=== PATIENT | female | born 1935 | race Caucasian/White ===

== ENCOUNTER → 2018-01-06 14:32 | Outpatient (CLI) | payer MEDICARE, SELFPAY ==
[2018-01-06 15:54] LABS: Alanine Aminotransferase 41 IU/L (9-52); Albumin 4.5 g/dL (3.5-5.0); Albumin Globulin Ratio 1.7 (1.0-2.8); Alkaline Phosphatase 66 U/L (38-126); Aspartate Aminotransferase 43 IU/L (14-36); BUN Creatinine Ratio 21.1 (6-22); Bilirubin Total 0.7 mg/dL (0.2-1.3); Blood Urea Nitrogen 19 mg/dL (7-17); Carbon Dioxide 30 mmol/L (22-32); Chloride 100 mmol/L (98-107); Estimated Glomerular Filt Rate > 60.0 mL/min (>60); Globulin 2.6 g/dL (1.7-4.1); Glucose 127 mg/dL (80-110); HEMOLYSIS < 15 (0-50); Potassium 4.5 mmol/L (3.4-5.1); Sodium 142 mmol/L (137-145); Total Protein 7.1 g/dL (6.3-8.2)
== END ==
PROVIDERS: PCP Internal Medicine Geriatric Medicine; Visit Provider Internal Medicine Geriatric Medicine
DX: I10 Essential (primary) hypertension (principal)
CPT/HCPCS: 36415; 80053

== ENCOUNTER → 2018-01-07 09:53 | Outpatient (CLI) | payer MEDICARE, SELFPAY ==
--- NOTE | 2018-01-07 | DI.RAD.S_ITS ---
PROCEDURE: FL BARIUM SWALLOW INDICATIONS: DYSPHAGIA HYPERTENSION COMPARISON: [facility], CR, XR BARIUM SWALLOW ESOPHAGUS, 11/09/2016, 15:25. FINDINGS: Function: There is abnormal esophageal peristalsis with failure of primary peristalsis in the prone oblique position, incomplete secondary peristalsis and tertiary contractions. No elicited gastroesophageal reflux. There is normal transit of a calibrated barium tablet through the esophagus into the stomach. Morphology: Air-contrast images demonstrate normal mucosal morphology. There is evidence of previous failed fundoplasty with recurrent hiatal hernia. Single contrast views show no esophageal strictures, extrinsic mass effects, or diverticula. Limited images of the stomach demonstrate normal appearance. IMPRESSION: 1. Esophageal dysmotility 2. Recurrent hiatal hernia at post failed fundoplasty, appearing unchanged from last exam. No reflux demonstrated on current study. Dictated by: Vernon Canchola M.D. on 01/07/2018 at 10:53 Approved by: Vernon Canchola M.D. on 01/07/2018 at 10:57
--- NOTE | 2018-01-07 | DI.MRI.S_ITS ---
PROCEDURE: MR STROKE Pre- and post-contrast brain MRI, non-contrast brain MR angiogram, pre- and postcontrast neck MR angiogram INDICATIONS: DYSPHAGIA, HYPERTENSION, HEADACHE TECHNIQUE: Brain: Noncontrast axial T1 spin echo, axial T2 fast spin echo, sagittal and axial FLAIR, coronal T2 fast spin echo, axial gradient echo, axial diffusion and ADC through the brain. After the administration of contrast, axial 3D VIBE of the cranial vasculature and brain. Brain MRA: Non-contrast 3-D time of flight MR angiogram, with multiple wtlwqgg-qcswsnace-ftpdimkdip (MIP) reformats performed. Neck MRA: Axial and sagittal TruFISP through the neck. Coronal dynamic MR angiogram during administration of contrast in the arterial and venous phases, with 3-dimenstional lqwsfqg-nmtetgapl-ecfadnjags (MIP) reformats constructed from subtraction images. COMPARISON: [facility], CT, HEAD WITHOUT CONTRAST, 12/23/2016, 5:10. [facility], MR, STROKE PROTOCOL, 08/10/2016, 11:12. FINDINGS: Image quality: Excellent. BRAIN: CSF spaces: Ventricles are normal in size and shape. Basal cisterns are patent. No extra-axial fluid collections. Brain: No intracranial bleeds or mass effects. There is mild diffuse cerebral volume loss. There is a mild degree of patchy high FLAIR signal within the periventricular and subcortical white matter. Gomes-white matter interface is normal. Diffusion weighted images show no acute ischemic insults. Brainstem appears normal. Normal intravascular flow voids are present. No abnormal intracranial enhancement. Skull and face: Calvarial marrow signal is normal. Orbits appear normal. Sinuses: Sinuses and mastoids are clear. BRAIN MR ANGIOGRAM: Anterior circulation: Intracranial internal carotid arteries are normal in size and enhancement. The flow within the paired anterior cerebral arteries is normal and symmetric. The flow within the middle cerebral arteries is normal and symmetric. The anterior communicating artery is seen. No stenoses, occlusions, or aneurysms. Posterior circulation: The visualized portions of the vertebral arteries demonstrate normal caliber, and join to form a normal appearing basilar artery. The flow within the posterior cerebral arteries is normal and symmetric. No stenoses, occlusions, or aneurysms. NECK MR ANGIOGRAM: Carotids: Great vessels demonstrate a conventional anatomy as they arise from the aortic arch. The origins of the common carotid arteries appear patent. The calibers and courses of both common carotid arteries are normal. The bifurcation regions appear normal bilaterally. The internal carotid arteries demonstrate normal course and caliber. Posterior circulation: The origins of the vertebral arteries appear patent. More superior portions of both vertebral arteries demonstrate normal course and caliber, and join to form a normal appearing basilar artery. Miscellaneous: Subclavian arteries appear patent. Pre-contrast images through the neck show no soft tissue abnormalities. IMPRESSION: BRAIN MRI: 1. Negative evaluation of the brain. No recent infarct. 2. Mild volume loss and small vessel ischemic disease. BRAIN MR ANGIOGRAM: Negative cerebral MR angiography. NECK MR ANGIOGRAM: 1. No internal carotid artery stenosis bilaterally. 2. Patent bilateral vertebral arteries. Dictated by: Hilda Fernando M.D. on 01/07/2018 at 14:01 Approved by: Hilda Fernando M.D. on 01/07/2018 at 14:08
== END ==
PROVIDERS: Family Provider Internal Medicine Geriatric Medicine; PCP Internal Medicine Geriatric Medicine; Visit Provider Internal Medicine Geriatric Medicine
DX: K22.4 Dyskinesia of esophagus (principal); K44.9 Diaphragmatic hernia without obstruction or gangrene; I10 Essential (primary) hypertension; R51 Headache
CPT/HCPCS: 70553; 74220; A9579

== ENCOUNTER 2018-02-16 08:30 | Outpatient (RCR) | payer MEDICARE, SELFPAY | END 2018-02-17 11:07 | LOC: SP 08:30 | PROVIDERS: Family Provider Internal Medicine Geriatric Medicine; PCP Internal Medicine Geriatric Medicine; Visit Provider Internal Medicine Geriatric Medicine | DX: K22.4 Dyskinesia of esophagus (principal); R13.14 Dysphagia, pharyngoesophageal phase | CPT/HCPCS: 92526; 92610 ==

== ENCOUNTER → 2018-02-25 14:32 | Outpatient (CLI) | payer MEDICARE, SELFPAY ==
[2018-02-27 19:36] LABS: ANA Screen, IFA Negative (Negative)
== END ==
PROVIDERS: Family Provider Internal Medicine Geriatric Medicine; PCP Internal Medicine Geriatric Medicine; Visit Provider Internal Medicine Geriatric Medicine
DX: I73.00 Raynaud's syndrome without gangrene (principal)
CPT/HCPCS: 36415; 86038

== ENCOUNTER → 2018-05-11 14:38 | Outpatient (CLI) | payer MEDICARE, SELFPAY ==
[2018-05-11 14:54] LABS: Bacteria Urine None Seen; RBC Urine None Seen (0-5/HPF); WBC Urine None Seen (0-5/HPF)
[2018-05-11 15:04] LABS: Appearance Urine UA CLEAR; Bilirubin Urine UA NEGATIVE (NEGATIVE); Color Urine UA YELLOW; Glucose Urine UA NEGATIVE (Normal); Ketones Urine UA NEGATIVE (NEGATIVE); Leukocyte Esterase Urine UA NEGATIVE (NEGATIVE); Nitrite Urine UA NEGATIVE (Negative); Occult Blood Urine UA TRACE-LYSED (Negative); Protein Urine UA NEGATIVE (Negative); Urobilinogen Urine UA 0.2 E.U./dL (0.2)
[2018-05-11 16:01] LABS: Culture Indicated Urine Cult Not Indicated; Urine Comments Microscopic Normal
[2018-05-11 17:13] LABS: BUN Creatinine Ratio 22.2 (6-22); Blood Urea Nitrogen 20 mg/dL (7-17); Calcium 9.9 mg/dL (8.4-10.2); Carbon Dioxide 30 mmol/L (22-32); Chloride 103 mmol/L (98-107); Estimated Glomerular Filt Rate > 60.0 mL/min (>60); Glucose 83 mg/dL (80-110); HEMOLYSIS < 15 (0-50); Potassium 4.6 mmol/L (3.4-5.1); Sodium 144 mmol/L (137-145)
== END ==
PROVIDERS: PCP Internal Medicine Geriatric Medicine; Visit Provider Internal Medicine Geriatric Medicine
DX: R32 Unspecified urinary incontinence (principal); R19.5 Other fecal abnormalities
CPT/HCPCS: 36415; 80048; 81001

== ENCOUNTER → 2018-06-06 13:03 | Outpatient (CLI) | payer MEDICARE, SELFPAY ==
[2018-06-06 18:40] LABS: Blood Urea Nitrogen 18 mg/dL (7-17); Calcium 9.7 mg/dL (8.4-10.2); Carbon Dioxide 27 mmol/L (22-32); Chloride 105 mmol/L (98-107); Estimated Glomerular Filt Rate > 60.0 mL/min (>60); Glucose 101 mg/dL (80-110); HEMOLYSIS < 15 (0-50); Potassium 4.4 mmol/L (3.4-5.1); Sodium 145 mmol/L (137-145)
[2018-06-06 19:15] LABS: Cancer Antigen 125 12 U/mL (0-35)
[2018-06-06 19:33] LABS: Vitamin B12 902 pg/mL (239-931)
== END ==
PROVIDERS: Family Provider Internal Medicine Geriatric Medicine; PCP Internal Medicine Geriatric Medicine; Visit Provider Psychiatry & Neurology Neurology
DX: N83.9 Noninflammatory disorder of ovary, fallopian tube and broad ligament, unspecified (principal); D39.9 Neoplasm of uncertain behavior of female genital organ, unspecified; N83.209 Unspecified ovarian cyst, unspecified side; R63.4 Abnormal weight loss; G31.84 Mild cognitive impairment of uncertain or unknown etiology; R19.5 Other fecal abnormalities
CPT/HCPCS: 36415; 80048; 82607; 86304

== ENCOUNTER → 2018-06-20 08:16 | Outpatient (CLI) | payer MEDICARE, SELFPAY ==
[2018-06-20 10:21] LABS: Carcinoembryonic Antigen 1.9 ng/mL (0.1-3.0)
[2018-06-21 16:02] LABS: Cancer (Carbohydrate) Ag 19-9 41 U/mL (< 34)
== END ==
PROVIDERS: Family Provider Internal Medicine Geriatric Medicine; PCP Internal Medicine Geriatric Medicine; Visit Provider Obstetrics & Gynecology
DX: R19.00 Intra-abdominal and pelvic swelling, mass and lump, unspecified site (principal)
CPT/HCPCS: 36415; 82378; 86301

== ENCOUNTER 2018-06-22 10:38 | Emergency (ER) | payer MEDICARE, SELFPAY ==
[2018-06-22 10:49] VITALS: BP 135/52; PULSE 56; RESP 16; TEMP 36.4; O2SAT 97
--- NOTE | 2018-06-22 10:56 | ED.FALL ---
HPI - Fall General Chief Complaint: Fall Stated Complaint: nausea,fell Time Seen by Provider: 06/22/18 10:47 Source: patient Mode of arrival: ambulatory Limitations: no limitations History of Present Illness HPI Narrative: Patient is an 83-year-old female who presents after ground level fall. She says she has a condition where she has to get up slowly or she falls. She has to take a pause before she starts moving. She started moving felt unsteady she stopped started moving again and then fell onto the left side of her head. No loss of consciousness she does have some minor neck pain no numbness tingling or weakness. She denies any dizziness lightheadedness heart palpitations. MD complaint: fall Onset (ago): minute(s) Fall from: standing Related Data Home Medications Medication Instructions Recorded Confirmed ASPIRIN (Aspir-Low) 81 mg PO HS #0 07/14/11 LEVOTHYROXINE SODIUM #0 10/17/11 amlodipine [Norvasc] 5 mg PO HS #0 02/21/16 losartan PO BID #0 08/08/16 pantoprazole 40 mg PO BID #0 08/08/16 sertraline 25 mg PO HS #0 08/08/16 Allergies Allergy/AdvReac Type Severity Reaction Status Date / Time amoxicillin [AMOXICILLIN] Allergy Intermediate RASH Unverified 10/27/17 11:49 celecoxib [CELECOXIB] Allergy Intermediate RASH Unverified 10/27/17 11:49 rofecoxib [ROFECOXIB] Allergy Mild RASH Unverified 10/27/17 11:49 prednisolone [PREDNISOLONE] Allergy Unknown Unverified 10/27/17 11:49 hydrocodone [HYDROCODONE] AdvReac Mild SEVERE Unverified 10/27/17 11:49 NAUSEA Review of Systems Review of Systems All systems reviewed & are unremarkable except as noted in HPI and below Constitutional Denies chills, Denies fever(s) and Reports frequent falls Cardiovascular Denies chest pain, Denies irregular heart rhythm, Denies lightheadedness, Denies palpitations, Denies dyspnea, Denies dyspnea on exertion and Denies orthopnea Respiratory Denies cough, Denies dyspnea, Denies dyspnea on exertion and Denies wheezing Gastrointestinal Gastrointestinal: Denies abdominal pain, Denies change in bowel habits, Denies diarrhea, Denies nausea and Denies vomiting Musculoskeletal Denies back pain, Denies muscle weakness, Denies numbness and Denies tingling Integumentary/Breasts Denies pruritus, Denies erythema, Denies rash and Denies wounds Neurologic Reports frequent falls, Denies numbness and Denies tingling Endocrine Denies palpitations Allergic/Immunologic Denies wheezing Exam Initial Vital Signs Initial Vital Signs: Vital Signs Temperature 97.5 F L 06/22/18 10:49 Pulse Rate 56 L 06/22/18 10:49 Respiratory Rate 16 06/22/18 10:49 Blood Pressure 135/52 L 06/22/18 10:49 Pulse Oximetry 97 06/22/18 10:49 Const General: cooperative and healthy appearing Orientation: alert, awake and oriented x3 HENMT Head: abrasion (Left side), contusion, No temporal artery tenderness and No periorbital ecchymosis Ears: hearing grossly normal bilaterally Eyes General: appearance normal, both eyes and all related structures Pupils: PERRL EOM: EOM intact bilaterally Neck Neck: normal visual inspection, trachea midline, No lymphadenopathy, No midline deformity and No JVD Lymphatic: No lymphedema Resp Effort & Inspection: normal respiratory effort and able to speak in complete sentences Auscultation: clear to auscultation bilaterally, no rales, no rhonchi and no wheezes Cardio Rate: regular rate Rhythm: regular rhythm Heart Sounds: S1 normal and S2 normal GI Palpation: soft, No tender and No ascites Back/Spine/Pelvis Back: normal to inspection and No back tenderness Cervical Spine: collar present (Placed in ED) and cervical muscular tenderness Skin General: no rashes or lesions noted, No jaundice and No petechiae Neuro General: alert, oriented x3, gait normal and no focal motor deficits Cranial Nerves: CN's II-XI intact bilaterally Speech: speech normal Extrem General: full ROM, no clubbing, cyanosis or edema, no pedal edema and no calf tenderness PFSH Medical History GERD (gastroesophageal reflux disease) (Acute) Hypothyroid (Acute) Social History Smoking Status: Never smoker alcohol intake: never substance use type: does not use Course Orders Ordered: ED Orders 06/22/18 11:01 CT cervical spine wo con Stat CT head/brain wo con Stat Discontinued Medications Acetaminophen (Tylenol) 650 mg PO NOW ONE Stop: 06/22/18 12:04 Vital Signs - 8 hr 06/22/18 10:49 06/22/18 12:00 Temperature 97.5 F L Pulse Rate 56 L 69 Respiratory Rate 16 15 Blood Pressure 135/52 L Blood Pressure [Left Arm] 116/58 L Pulse Oximetry 97 96 MDM - Fall Imaging Data CT scan - head: Radiologist's impression: PROCEDURE: CT HEAD/BRAIN WO CON INDICATIONS: fall left sided injury TECHNIQUE: Noncontrast 4.5 mm thick angled axial sections acquired from the foramen magnum to the vertex, with coronal and sagittal reformats. For radiation dose reduction, the following was used: automated exposure control, adjustment of mA and/or kV according to patient size. COMPARISON: [facility], MR, MR STROKE, 01/07/2018, 11:01. [facility], CT, HEAD WITHOUT CONTRAST, 12/23/2016, 5:10. FINDINGS: Image quality: Excellent. CSF spaces: Basal cisterns are patent. No extra-axial fluid collections. The ventricles are symmetric in size and shape. Brain: No intracranial bleeds or masses. There is mild cerebral volume loss for age, with resultant ventricular and sulcal prominence. There are mild periventricular and deep white matter chronic small vessel ischemic changes. There is intracranial internal carotid artery atherosclerosis. Skull and face: Calvarium and visualized facial bones appear intact, without suspicious lesions. There is left parietal scalp contusion. Sinuses: Visualized sinuses and mastoids are clear. IMPRESSION: 1. No acute intracranial abnormalities. 2. Cerebral volume loss and chronic microvascular ischemic changes. 3. Left parietal scalp contusion. Dictated by: Linda Plunkett M.D. on 06/22/2018 at 11:12 CT-C spine: Radiologist's impression: [place] [address] CT Scan Report Signed Patient: Alia Jonas RMR#: [id number] : 1935Acct:[id number] Age/Sex: 83 / FDate of Service: 06/22/18 Loc: ED Accession Number: [id number] Procedure: CT cervical spine wo con Ordering Provider: Zuleima Latham D.O. PROCEDURE: CT CERVICAL SPINE WO CON INDICATIONS: neck pain fall TECHNIQUE: Noncontrast 3 mm thick sections acquired from the skull base to the T4 level. Sagittal and coronal reformats were then constructed. For radiation dose reduction, the following was used: automated exposure control, adjustment of mA and/or kV according to patient size. COMPARISON: None. FINDINGS: Image quality: Excellent. Bones: No fractures or dislocations. Visualized superior ribs are intact. Spine degenerative disc disease and facet arthropathy. Soft tissues: Prevertebral soft tissues are normal in thickness. No paravertebral hematomas. No apical pneumothoraces. IMPRESSION: No fracture. No acute osseous lesion. If symptoms and/or clinical suspicion for pathology persists, evaluation with MRI may be helpful for further assessment. Dictated by: Payton Javier MD, PhD on 06/22/2018 at 11:16 Discharge Plan Departure Patient Disposition: Home Clinical Impression: Contusion of scalp Discharge Date/Time: 06/22/18 12:10 Interventions: ED Discharge Assessment Last Done: 06/22/18 12:10 Instructions: Contusion Activity Restrictions/Additional Instructions: *You have been diagnosed with contusion left scalp *What to do: Continue to get up slowly. CT of head and neck are negative *Continue to take medications as directed Tylenol 650 mg every 4-6 hours if needed for pain *Follow up with your primary care provider in 2-3 days *Return to ER if you should have weakness, recurrent falls out of the ordinary or any new, worsening or concerning symptoms Prescriptions: No Action ASPIRIN (Aspir-Low) 81 mg PO HS Qty: 0 RF: 0 LEVOTHYROXINE SODIUM Qty: 0 RF: 0 amlodipine [Norvasc] 5 MG tablet 5 mg PO HS Qty: 0 RF: 0 losartan 50 mg Tablet PO BID Qty: 0 RF: 0 pantoprazole 40 MG tablet,delayed release (DR/EC) 40 mg PO BID Qty: 0 RF: 0 sertraline 25 MG tablet 25 mg PO HS Qty: 0 RF: 0 Referrals: Mary Ann Beltran MD [Primary Care Provider] -
--- NOTE | 2018-06-22 11:01 | DI.CT.S_ITS ---
PROCEDURE: CT CERVICAL SPINE WO CON INDICATIONS: neck pain fall TECHNIQUE: Noncontrast 3 mm thick sections acquired from the skull base to the T4 level. Sagittal and coronal reformats were then constructed. For radiation dose reduction, the following was used: automated exposure control, adjustment of mA and/or kV according to patient size. COMPARISON: None. FINDINGS: Image quality: Excellent. Bones: No fractures or dislocations. Visualized superior ribs are intact. Spine degenerative disc disease and facet arthropathy. Soft tissues: Prevertebral soft tissues are normal in thickness. No paravertebral hematomas. No apical pneumothoraces. IMPRESSION: No fracture. No acute osseous lesion. If symptoms and/or clinical suspicion for pathology persists, evaluation with MRI may be helpful for further assessment. Dictated by: Payton Javier MD, PhD on 06/22/2018 at 11:16 Approved by: Payton Javier MD, PhD on 06/22/2018 at 11:26
--- NOTE | 2018-06-22 11:01 | DI.CT.S_ITS ---
PROCEDURE: CT HEAD/BRAIN WO CON INDICATIONS: fall left sided injury TECHNIQUE: Noncontrast 4.5 mm thick angled axial sections acquired from the foramen magnum to the vertex, with coronal and sagittal reformats. For radiation dose reduction, the following was used: automated exposure control, adjustment of mA and/or kV according to patient size. COMPARISON: [facility], MR, MR STROKE, 01/07/2018, 11:01. [facility], CT, HEAD WITHOUT CONTRAST, 12/23/2016, 5:10. FINDINGS: Image quality: Excellent. CSF spaces: Basal cisterns are patent. No extra-axial fluid collections. The ventricles are symmetric in size and shape. Brain: No intracranial bleeds or masses. There is mild cerebral volume loss for age, with resultant ventricular and sulcal prominence. There are mild periventricular and deep white matter chronic small vessel ischemic changes. There is intracranial internal carotid artery atherosclerosis. Skull and face: Calvarium and visualized facial bones appear intact, without suspicious lesions. There is left parietal scalp contusion. Sinuses: Visualized sinuses and mastoids are clear. IMPRESSION: 1. No acute intracranial abnormalities. 2. Cerebral volume loss and chronic microvascular ischemic changes. 3. Left parietal scalp contusion. Dictated by: Linda Plunkett M.D. on 06/22/2018 at 11:12 Approved by: Linda Plunkett M.D. on 06/22/2018 at 11:23
--- NOTE | 2018-06-22 11:16 | PC.NURSE ---
1145 - c-collar applied by munir TEJADA and Latrice SANFORD
[2018-06-22 12:00] VITALS: BP 116/58; PULSE 69; RESP 15; O2SAT 96
== END 2018-06-22 12:10 | disposition home or self-care (01) ==
PROVIDERS: Emergency Provider Emergency Medicine; PCP Internal Medicine Geriatric Medicine
DX: S00.03XA Contusion of scalp, initial encounter (principal); W18.30XA Fall on same level, unspecified, initial encounter
CPT/HCPCS: 70450; 72125; 99282; 99284

== ENCOUNTER → 2019-01-03 09:32 | Outpatient (CLI) | payer MEDICARE, SELFPAY ==
--- NOTE | 2019-01-03 | DI.MG.S_ITS ---
BILATERAL DIGITAL SCREENING MAMMOGRAM 3D/2D WITH CAD: 01/03/2019 CLINICAL: Routine screening. Family history of breast cancer. Comparison is made to exams dated: 11/15/2017 mammogram, 11/12/2016 mammogram, and 11/11/2015 mammogram - [facility]. There are scattered fibroglandular elements in both breasts. Current study was also evaluated with a Computer Aided Detection (CAD) system. There are benign vascular calcifications in both breasts. No significant masses, calcifications, or other findings are seen in either breast. There has been no significant interval change. IMPRESSION: There is no mammographic evidence of malignancy. A 1 year screening mammogram is recommended. This exam was interpreted at Station ID: [id number]. NOTE: For mammograms, a report in lay terms will be sent to the patient. Approximately 15% of breast malignancies will not be visualized mammographically. In the management of a palpable breast mass, a negative mammogram must not discourage biopsy of a clinically suspicious lesion. Electronically Signed By: Magdaleno leigh/ted:01/03/2019 16:55:53 letter sent: Normal Exam ACR BI-RADS Category 2: Benign Finding(s) 3342F
== END ==
PROVIDERS: PCP Internal Medicine Geriatric Medicine; Visit Provider Internal Medicine Geriatric Medicine
DX: Z12.31 Encounter for screening mammogram for malignant neoplasm of breast (principal); Z80.3 Family history of malignant neoplasm of breast
CPT/HCPCS: 77063; 77067

== ENCOUNTER → 2020-12-13 14:56 | Outpatient (CLI) | payer MEDICARE, SELFPAY ==
--- NOTE | 2020-12-13 | DI.MG.S_ITS ---
BILATERAL DIGITAL SCREENING MAMMOGRAM 3D/2D WITH CAD: 12/13/2020 CLINICAL: Routine screening. Family history of breast cancer. Comparison is made to exams dated: 01/03/2019 mammogram, 11/15/2017 mammogram, 11/12/2016 mammogram, 11/11/2015 mammogram, 11/09/2014 mammogram, and 11/08/2013 mammogram - [facility]. There are scattered fibroglandular elements in both breasts. Current study was also evaluated with a Computer Aided Detection (CAD) system. There are benign vascular calcifications in both breasts. No significant masses, calcifications, or other findings are seen in either breast. There has been no significant interval change. IMPRESSION: BENIGN There is no mammographic evidence of malignancy. A 1 year screening mammogram is recommended. This exam was interpreted at Station ID: [id number]. NOTE: For mammograms, a report in lay terms will be sent to the patient. Approximately 15% of breast malignancies will not be visualized mammographically. In the management of a palpable breast mass, a negative mammogram must not discourage biopsy of a clinically suspicious lesion. Electronically Signed By: Jeyson li/ted:12/13/2020 16:10:58 letter sent: Normal Exam ACR BI-RADS Category 2: Benign Finding(s) 3342F
== END ==
PROVIDERS: PCP Internal Medicine Geriatric Medicine; Referring Provider Internal Medicine Geriatric Medicine; Visit Provider Internal Medicine Geriatric Medicine
DX: Z12.31 Encounter for screening mammogram for malignant neoplasm of breast (principal); Z80.3 Family history of malignant neoplasm of breast
CPT/HCPCS: 77063; 77067